=== PATIENT | male | born 1985 | race Caucasian/White ===

== ENCOUNTER 2016-09-24 15:51 | Emergency (ER) | payer OTHER ==
[~2016-09-24] VITALS: Ht 172.7 cm; Wt 70.3 kg
--- NOTE | 2016-09-24 16:33 | ED PSYCHIATRIC COMPLAINT ---
History of Present Illness General Chief Complaint: ETOH/Drug Related Complaint Stated Complaint: REQUESTING DETOX FROM ETOH Source: patient, family, old records Exam Limitations: no limitations Vital Signs & Intake/Output Vital Signs & Intake/Output Vital Signs Date Time Temp Pulse Resp B/P B/P Pulse O2 O2 Flow FiO2 Mean Ox Delivery Rate 09/24 1918 97.1 108 16 151/83 97 09/24 191 97.1 108 16 151/83 09/24 1633 97.8 118 15 143/94 09/24 1610 143/94 09/24 1555 97.8 118 15 187/110 96 Room Air Room Air Allergies Coded Allergies: Penicillins (Intermediate, HIVES 09/24/16) Reconcile Medications Chlordiazepoxide HCl 25 MG CAPSULE 0 PO SEE ADMIN CRITERIA PRN detox 1-2 tabs 3 times a day for 2 days 1-2 tabs 2 times a day for 2 days 1-2 tabs 1 time a day for 2 days Cholecalciferol (Vitamin D3) (Vitamin D) (Unknown Strength) TABLET (Unknown Dose) PO DAILY SUPPLEMENT (Reported) Dextroamphetamine/Amphetamine (Adderall 10 MG Tablet) 10 MG TABLET 1 TAB PO BID MS (Reported) Triage Note: PT TO ED FOR ETOH DETOX. PT IS A DAILY DRINKER OF 16 OZ OF WINE AT NIGHT. LAST DRINK THIS MORNING AT 0910 AND DRANK 3 0Z. THIS IS PT'S FIRST TIME DETOXING. DENIES SI/HI. Triage Nurses Notes Reviewed? yes Onset: Just prior to arrival Duration: hour(s):, constant, continues in ED Timing: recent history Severity: moderate HPI: Patient received DUI last night. He admits to daily wine abuse. Requests alcohol detox. He does not recall ever abstaining from alcohol. He denies fever chills nausea vomiting diarrhea abdominal pain chest pain shortness of breath headache dysuria rash bleeding suicidal ideation homicidal ideation hallucination (THU CHIN,CLINT) Past History Travel History Traveled to [place] past 21 day No Medical History Any Pertinent Medical History? 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 No (CLINT ANDINO MD) Review of Systems Review of Systems Constitutional: Reports: no symptoms. EENTM: Reports: no symptoms. Respiratory: Reports: no symptoms. Cardiovascular: Reports: no symptoms. GI: Reports: no symptoms. Genitourinary: Reports: no symptoms. Musculoskeletal: Reports: no symptoms. Skin: Reports: no symptoms. Neurological/Psychological: Reports: no symptoms. Hematologic/Endocrine: Reports: no symptoms. Immunologic/Allergic: Reports: no symptoms. All Other Systems: Reviewed and Negative (CLINT ANDINO MD) Physical Exam Physical Exam General Appearance: well developed/nourished, mild distress Head: atraumatic Eyes: Bilateral: PERRL, EOMI. 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 patient not suicidal CAGE (2/more=possible [place] CAGE (2/more=possible [place] Response Value Cut Down? yes 1 Annoyed? yes 1 Guilty? yes 1 Eye Joint Cutter Machine? yes 1 Total 4 (CLINT ANDINO MD) Progress Differential Diagnosis: drug intoxication, drug withdrawal, electrolyte abnormality, hypoglycemia Plan of Care: Orders Procedure Date/time Status Regular Diet 09/24 D Active CIWA 09/24 1605 Active URINE DRUGS OF ABUSE 09/24 1602 Complete ETHANOL 09/24 1602 Complete COMPREHENSIVE METABOLIC PANEL 09/24 1602 Complete CBC WITHOUT DIFFERENTIAL 09/24 1602 Complete Laboratory Tests 09/24/16 1629: Urine Opiates Screen < 100.00, Methadone Screen < 40, Barbiturate Screen < 60, Ur Phencyclidine Scrn < 6.00, Amphetamines Screen > 1450 H, U Benzodiazepines Scrn < 85, Urine Cocaine Screen 55, Urine Cannabis Screen < 5.00 09/24/16 1615: Anion Gap 18 H, Estimated GFR > 60, BUN/Creatinine Ratio 7.5, Glucose 175 H, Calcium 9.4, Total Bilirubin 0.3, AST 27, ALT 42, Alkaline Phosphatase 91, Total Protein 7.8, Albumin 5.2 H, Globulin 2.6, Albumin/Globulin Ratio 2.0, Serum Alcohol 183.0 09/24/16 1614: CBC w Diff NO MAN DIFF REQ, RBC 4.75, MCV 96.4 H, MCH 32.1 H, RDW 13.0, MPV 7.7, Gran % 57.1, Lymphocytes % 33.2, Monocytes % 8.0, Eosinophils % 1.3, Basophils % 0.4, Absolute Granulocytes 5.0, Absolute Lymphocytes 2.9, Absolute Monocytes 0.7 H, Absolute Eosinophils 0.1, Absolute Basophils 0, PUBS MCHC 33.3 Hand-Off Endorsed To: FELICIA WILHELM MD Endorsed Time: 1899 Pending: other (serial CIWA, sober at 9PM) (CLINT ANDINO MD) Departure Departure Disposition: STILL A PATIENT Condition: Stable Clinical Impression Primary Impression: Alcohol abuse Secondary Impressions: Alcohol intoxication Qualifiers: Complication of substance-induced condition: with unspecified complication Qualified Code: F10.929 - Alcohol use, unspecified with intoxication, unspecified Referrals: HARDEEP DEJESUS MD (PCP/Family) Departure Forms: Customer Survey General Discharge Information Prescriptions: Current Visit Scripts Chlordiazepoxide HCl 0 PO SEE ADMIN CRITERIA PRN detox #24 CAP 1-2 tabs 3 times a day for 2 days 1-2 tabs 2 times a day for 2 days 1-2 tabs 1 time a day for 2 days (CLINT ANDINO MD) PA/PARAMEDIC SUPERVISOR Co-Sign Statement Statement: ED Attending supervision documentation- [] I saw and evaluated the patient. I have also reviewed all the pertinent lab results and diagnostic results. I agree with the findings and the plan of care as documented in the PA's/PARAMEDIC SUPERVISOR's documentation. [x] I have reviewed the ED Record and agree with the PA's/PARAMEDIC SUPERVISOR's documentation. [] Additions or exceptions (if any) to the PAs/PARAMEDIC SUPERVISOR's note and plan are summarized below: [] (CHOCO CHIN,FELICIA Causey)
[2016-09-24 16:38] LABS: ABSOLUTE BASOPHIL COUNT 0 /CUMM (0.0-0.2); ABSOLUTE EOSINOPHIL COUNT 0.1 /CUMM (0.0-0.7); ABSOLUTE LYMPH COUNT 2.9 /CUMM (1.2-3.4); ABSOLUTE MONOCYTE COUNT 0.7 /CUMM (0.10-0.60); BASOPHIL % 0.4 % (0.0-2.0); EOSINOPHIL % 1.3 % (0-5); GRANULOCYTE % 57.1 % (42.2-75.2); HEMATOCRIT 45.8 % (42-52); MEAN CORPUSCULAR HGB 32.1 PG (27.0-31.0); MEAN CORPUSCULAR HGB CONC 33.3 G/DL (33.0-37.0); MEAN CORPUSCULAR VOLUME 96.4 FL (80.0-94.0); MEAN PLATELET VOLUME 7.7 FL (7.4-10.4); PLATELET COUNT 288 /CUMM (130-400); RED BLOOD CELL CT 4.75 /CUMM (4.70-6.10); WHITE BLOOD CELL COUNT 8.7 /CUMM (4.8-10.8)
[2016-09-24] MEDS ORDERED: VITAMIN D2000 UNI1 PO (16:54)
[2016-09-24] MEDS ORDERED: ADDERALL 10 MG10 MG PO (16:54)
[2016-09-24] MEDS ORDERED: CHLORDIAZEPOXID25 M3 PO (18:17)
[2016-09-24 19:19] VITALS: BP 151/83
== END 2016-09-24 19:29 ==
LOC: ERH 15:51
PROVIDERS: Emergency Medicine
DX: F10.129 Alcohol abuse with intoxication, unspecified (principal)
CPT/HCPCS: 80307; G0480